=== PATIENT | male | born 1975 | race Caucasian/White ===

== ENCOUNTER 2022-12-15 02:27 | Emergency (ER) | payer OTHER ==
[~2022-12-15] VITALS: Ht 165.1 cm; Wt 53.5 kg
--- NOTE | 2022-12-15 02:45 | NUR ---
CARBURETOR REPAIRER AT PT'S BEDSIDE
--- NOTE | 2022-12-15 02:45 | NUR ---
BIBFAMILY. MID STERNAL CP RADIAITING TO L ARM X 1 HR TIGHTNESS. REPORTS PT IS SUBSIDING SINCE IT STARTED. PT A/OX4. TOLERATING R/A WELL WITH NO RESP DISTRESS. CONNECT PT TO POX AND MONITOR. SAFETY MEASURES IN PLACE.
--- NOTE | 2022-12-15 03:46 | NUR ---
Patient discharged to home in stable condition. Written and verbal after care instructions given. Patient verbalizes understanding of instruction.
[2022-12-15 04:28] VITALS: BP 111/74
== END 2022-12-15 03:50 | disposition home or self-care (01) ==
LOC: ER 02:30
DX: R07.89 Other chest pain (principal); G47.00 Insomnia, unspecified; G89.29 Other chronic pain
CPT/HCPCS: 71045-TC